=== PATIENT | female | born 2000 | race African-American/Black ===

== ENCOUNTER 2022-10-16 17:58 | Emergency (ER) | payer OTHER, SELFPAY ==
--- NOTE | ~2022-10-16 | XR_ITS ---
EXAMINATION: XR chest 2V DATE: 10/16/2022 19:52 INDICATION: Cough and shortness of breath TECHNIQUE: Frontal and lateral views of the chest are obtained COMPARISON: None available FINDINGS: The lungs are free of acute opacities. No pleural effusion or pneumothorax. The cardiomedia stinal silhouette is normal. The visualized bones and soft tissues are unremarkable. IMPRESSION: 1. No acute cardiopulmonary abnormality. Reviewed, dictated and finalized at location F.
--- NOTE | ~2022-10-16 | CT_ITS ---
EXAMINATION: CT abdomen pelvis w con DATE: 10/17/2022 00:08 INDICATION: Abdominal pain. TECHNIQUE: Computed tomography (CT) of the abdomen and pelvis was performed with 100 mL Omnipaque 350 intravenous contrast. Automated exposure control and iterative reconstruction technique were employe d. The dose-length product was 1542.48 mGy-cm. COMPARISON: None. FINDINGS: The visualized portions of the lung bases demonstrate minimal atelectasis on the left. Ther e is a 5 mm nodule in the lingula, likely benign. There is a 4 mm nodule in left lower lobe, likely b enign. No pleural effusion. The heart size is normal. No pericardial effusion. The liver, gallbladder , spleen, pancreas, adrenal glands, and kidneys are normal. There are no dilated loops of bowel. The appendix is normal. There are no pathologically enlarged lymph nodes. There is physiologic fluid in t he pelvis. There is mild thoracic spondylosis. IMPRESSION: 1. No specific etiology for the patient's symptoms. Reviewed, dictated and finalized at location A.
--- NOTE | 2022-10-16 18:04 | ECG_ITS ---
Measurements Intervals [place] Rate: 109 P: 42 CT: 167 QRS: -4 QRSD: 77 T: 31 QT: 302 QTc: 408 Interpretive Statements SINUS TACHYCARDIA BASELINE ARTIFACT- I, II, III ABNORMAL ECG NO PREVIOUS ECG AVAILABLE FOR COMPARISON Electronically Signed On 10-16-2022 21:43:00 CDT by Larry Haynes D.O.
[2022-10-16 19:11] VITALS: BP 111/60; PULSE 71; RESP 16; TEMP 38.3; O2SAT 100
[2022-10-16 19:56] LABS: SARS-CoV-2 RNA PCR Negative
[2022-10-16 20:06] LABS: Appearance Urine Clear (Clear); Bacteria Urine None Seen /hpf; Bilirubin Urine Negative (Negative); Blood Urine 3+ (Negative); Color Urine Yellow (Yellow); Glucose Urine UA Negative (Negative); Ketones Urine 1+ mg/dL (Negative); Leukocyte Esterase Ur Negative LEU/UL (Negative); Nitrate Urine Negative (Negative); Non Pathogenic Casts 0-2; Protein Urine 1+ mg/dL (Negative); Specific Grav Ur 1.013 (1.001-1.035); Squamous Epithelial Cell Urine None seen /hpf (Few); Urobilinogen Urine 0.2 mg/dL (<2.0); WBC Urine 0-5 /hpf; pH Urine 5.5 (5.0-9.0)
[2022-10-16 20:07] LABS: Add Urine Microscopic? YES
[2022-10-16 21:40] VITALS: O2SAT 99
[2022-10-16 21:44] VITALS: BP 104/71; PULSE 111; RESP 35; O2SAT 97
[2022-10-16 22:05] LABS: Basophils Percent Auto 0.2 % (0.2-1.2); Eosinophils Percent Auto 0.1 % (0-4.4); Hematocrit 34.5 % (37.0-47.0); Hemoglobin 11.7 g/dL (12.0-15.0); Immature Granulocyte Percent A 0.8 % (0-0.5); Lymphocytes Absolute Auto 1.11 K/mm3 (0.9-3.2); Lymphocytes Percent Auto 9.4 % (18.3-44.2); Mean Corpuscular HGB Conc 33.9 g/dl (32-36); Mean Corpuscular Hemoglobin 27.6 pg (26-34); Mean Corpuscular Volume 81.4 fl (80-100); Mean Platelet Volume 9.9 fl (7.4-10.4); Monocytes Percent Auto 8.6 % (2.6-8.5); Neutrophils Absolute Auto 9.6 K/mm3 (1.3-6.7); Neutrophils Percent Auto 80.9 % (45.5-73.1); Platelet Count Result 184 k/mm3 (150-375); Red Blood Count 4.24 M/mm3 (4.2-5.4); Red Cell Distribution Width 14.3 % (11.5-14.5); White Blood Count 11.8 K/mm3 (4.5-10.0)
[2022-10-16 22:14] LABS: Potassium 3.7 mmol/L (3.4-5.0)
[2022-10-16 22:15] LABS: Alanine Aminotransferase 15 U/L (6-35); Albumin Level 4.3 g/dL (3.5-5.1); Alkaline Phosphatase 73 U/L (38-126); Anion Gap 12 mmol/L (8-16); Aspartate Amino Transferase 23 U/L (14-36); Bilirubin,Total 1.4 mg/dL (0.2-1.3); Blood Urea Nitrogen 13 mg/dL (7-17); Calcium 8.8 mg/dL (8.4-10.2); Carbon Dioxide 22 mmol/L (22-30); Chloride 103 mmol/L (98-107); Estimated Glomerular Filt Rate > 60; Glucose 91 mg/dL (65-110); Lipase 31 U/L (23-300); Sodium 137 mmol/L (137-145)
[2022-10-16 22:16] LABS: INR 1.4; Prothrombin Time 16.8 Seconds (11.1-14.7)
[2022-10-16 22:17] LABS: Partial Thromboplastin Time 25.1 SECONDS (22.3-36.8)
[2022-10-16 22:23] LABS: Platelet Estimate Adequate (Adequate); Schistocytes None Seen (NORMAL)
[2022-10-16 22:26] LABS: Troponin I < 0.012 ng/mL (0.000-0.034)
[2022-10-16 22:33] VITALS: BP 118/67; PULSE 112; RESP 34; O2SAT 97
[2022-10-16 23:44] VITALS: BP 112/64; PULSE 106; RESP 20; O2SAT 100
[2022-10-16] MEDS: SODIUM CHLORIDE 0.9% IV 1,000 ML 999 ML IV CONT (23:44)
[2022-10-17 01:20] LABS: Troponin I < 0.012 ng/mL (0.000-0.034)
[2022-10-17 01:41] VITALS: BP 116/74; PULSE 108; RESP 18; O2SAT 99
--- NOTE | 2022-10-17 01:49 | ED.GENADULT ---
HPI - General Adult General Chief complaint: Chest Pain Stated complaint: chest pain Time Seen by Provider: 10/16/22 23:10 History of Present Illness HPI narrative: patient is a 22 yr old female that presents wtih abdominal pain, fever, body aches and chest discomfort. Patient reports symptoms started yesterday reports she just has generalized malaise and body aches patient reports symptoms or not improved by anything really worsened by nothing. Related Data Allergies Allergy/AdvReac Type Severity Reaction Status Date / Time No Known Allergies Allergy Verified 10/17/22 01:40 Review of Systems Review of Systems: A 10 system review of systems was completed on the patient and is negative except for what is stated in the HPI. Nursing and ancillary documentation was reviewed. Exam Narrative: GENERAL: Well-appearing, well-nourished, and in no acute distress. HEAD: Normocephalic, atraumatic. EYES: PERRLA and EOMI. ENT: Nares clear, no rhinorrhea or epistaxis. Mucous membranes moist. NECK: Supple. CHEST: Clear to auscultation. No respiratory distress. HEART: Regular rate and rhythm. No murmur heard. Normal peripheral pulses. ABDOMEN: Soft, diffuse tenderness to palpation, nondistended, normal active bowel sounds. EXTREMITIES: Normal range of motion. No edema. SKIN: Warm, dry, no rash. NEURO: No focal deficits. Alert and oriented x3. PSYCH: Normal mood and affect. Course Vital Signs Vital signs: Vital Signs Temperature 38.3 C H 10/16/22 19:11 Pulse Rate 71 10/16/22 19:11 Respiratory Rate 16 10/16/22 19:11 Blood Pressure 111/60 10/16/22 19:11 Pulse Oximetry 100 10/16/22 19:11 Oxygen Delivery Room Air 10/16/22 19:11 Temperature 38.3 C H 10/16/22 19:11 Pulse Rate 86 10/17/22 03:11 Respiratory Rate 14 10/17/22 03:11 Blood Pressure 118/76 10/17/22 03:11 Pulse Oximetry 100 10/17/22 03:11 Oxygen Delivery Room Air 10/16/22 21:40 Medical Decision Making [facility] Narrative Medical decision making narrative: Differential diagnosis includes UTI, pneumonia, viral syndrome, cholelithiasis cholecystitis appendicitis. Laboratory studies were obtained which showed a white blood cell count of 11.8 electrolytes were within normal limits liver enzymes that showed a bilirubin of 1.[address] scan of the abdomen pelvis showed no acute abnormality Chest x-ray showed no focal infiltrate EKG showed sinus tachycardia rate of [address] elevation or ST depression Vital Signs Vital Signs: Vital Signs Temperature 38.3 C H 10/16/22 19:11 Pulse Rate 71 10/16/22 19:11 Respiratory Rate 16 10/16/22 19:11 Blood Pressure 111/60 10/16/22 19:11 Pulse Oximetry 100 10/16/22 19:11 Oxygen Delivery Room Air 10/16/22 19:11 Temperature 38.3 C H 10/16/22 19:11 Pulse Rate 86 10/17/22 03:11 Respiratory Rate 14 10/17/22 03:11 Blood Pressure 118/76 10/17/22 03:11 Pulse Oximetry 100 10/17/22 03:11 Oxygen Delivery Room Air 10/16/22 21:40 Lab Data 10/16/22 21:57 10/16/22 21:57 Labs: Lab Results 10/16/22 10/16/22 10/16/22 Range/Units 19:02 19:43 21:57 WBC 11.8 H (4.5-10.0) K/mm3 RBC 4.24 (4.2-5.4) M/mm3 Hgb 11.7 L (12.0-15.0) g/dL Hct 34.5 L (37.0-47.0) % MCV 81.4 (80-100) fl MCH 27.6 (26-34) pg MCHC 33.9 (32-36) g/dl RDW 14.3 (11.5-14.5) % Plt Count 184 (150-375) k/mm3 MPV 9.9 (7.4-10.4) fl Immature Gran % (Auto) 0.8 H (0-0.5) % Neut % (Auto) 80.9 H (45.5-73.1) % Lymph % (Auto) 9.4 L (18.3-44.2) % Bailey % (Auto) 8.6 H (2.6-8.5) % Eos % (Auto) 0.1 (0-4.4) % Baso % (Auto) 0.2 (0.2-1.2) % Lymph # (Auto) 1.11 (0.9-3.2) K/mm3 Bailey # (Auto) 1.0 H (0.1-0.6) K/mm3 Eos # (Auto) 0.0 (0-0.3) K/mm3 Baso # (Auto) 0.0 (0.0-0.1) K/mm3 Abs Immat Gran (auto) 0.10 H (0.00-0.031) K/mm3 Absolute Neuts (auto) 9.6 H (1.3-
[2022-10-17 03:11] VITALS: BP 118/76; PULSE 86; RESP 14; O2SAT 100
== END 2022-10-17 03:13 | disposition home or self-care (01) ==
PROVIDERS: Emergency Medicine; Emergency Provider Emergency Medicine
DX: B34.9 Viral infection, unspecified (principal); R07.89 Other chest pain; R10.84 Generalized abdominal pain; Z20.822 Contact with and (suspected) exposure to COVID-19; R00.0 Tachycardia, unspecified
CPT/HCPCS: 36415; 71046; 74177; 80053; 81001; 81025; 83690; 84484; 85025; 85055; 85610; 85730; 93005; 96360; 96361; 96365; 99284; J0131; J7030; Q9967; U0003; U0005